=== PATIENT | female | born 1945 | race African-American/Black ===

== ENCOUNTER 2023-03-31 11:59 | Inpatient (IN) | payer OTHER ==
[2023-03-31] MEDS ORDERED: DEXTROSE 50%-WATER 25 GM/50 ML DISP.SYRIN IVPUSH ONE (12:11)
[2023-03-31] MEDS ORDERED: DEXTROSE 50%-WATER 25 GM/50 ML DISP.SYRIN ONE ×2 (12:11→16:58)
[2023-03-31] MEDS ORDERED: DEXTROSE 50%-WATER - 25 GM/50 ML VIAL IVPUSH ONE (12:11)
[2023-03-31 12:48] LABS: BASO % 0.2 % (0-2.0); EOS % 0.1 % (0-4.5); HEMATOCRIT 29.9 % (32.4-45.2); HEMOGLOBIN 9.2 GM/dL (10.7-15.3); LYMPH % 7.4 % (8-40); MCH 27.6 pg (25.7-33.7); MCHC 30.9 g/dl (32.0-36.0); MEAN CELL VOLUME 89.5 fl (80-96); MEAN PLT VOLUME 6.6 fl (7.5-11.1); MONO % 3.6 % (3.8-10.2); NEUT % 88.7 % (42.8-82.8); PLATELET COUNT 380 10^3/uL (134-434); RBC 3.34 M/mm3 (3.60-5.2); RDW 17.2 % (11.6-15.6); WHITE BLOOD COUNT 6.5 K/mm3 (4.0-10.0)
[2023-03-31 12:57] LABS: INR 1.19 (0.83-1.09); PROTHROMBIN TIME (PATIENT) 13.8 SEC (9.7-13.0)
[2023-03-31 12:59] LABS: ACTIVATED PTT 34.2 SECONDS (25.2-36.5)
[2023-03-31 13:10] LABS: POTASSIUM 4.2 mmol/L (3.5-5.1)
[2023-03-31 13:12] LABS: CALCIUM 8.3 mg/dL (8.5-10.1)
[2023-03-31 13:13] LABS: ALBUMIN 2.7 g/dl (3.4-5.0); BLOOD UREA NITROGEN 33.2 mg/dL (7-18)
[2023-03-31 13:16] LABS: CREATININE 1.1 mg/dL (0.55-1.3)
[2023-03-31 13:18] LABS: BILIRUBIN,TOTAL 0.2 mg/dL (0.2-1); TOT PROT 6.2 g/dl (6.4-8.2)
[2023-03-31] MEDS ORDERED: MAG HYDROX/AL HYDROX/SIMETH 30 ML UNIT-DOSE CUP PO PRN (16:50)
[2023-03-31] MEDS ORDERED: ACETAMINOPHEN 325 MG TABLET (FP) PO PRN (17:20)
[2023-03-31] MEDS: DEXTROSE 50%-WATER 25 GM/50 ML DISP.SYRIN IVPUSH PRN (20:48)
[2023-03-31] MEDS ORDERED: SODIUM CHLORIDE 1,000 ML IV STA (20:55)
[2023-03-31] MEDS: MIRTAZAPINE 15 MG TABLET (FP) PO SCH (23:03)
[2023-03-31] MEDS: SENNOSIDES 8.6MG TABLET (FP) PO SCH (23:03)
[2023-03-31] MEDS: traMADol HCL 50 MG TABLET PO SCH (23:04)
[2023-03-31] MEDS: ATORVASTATIN CA 10 MG TABLET (FP) PO SCH (23:04)
[2023-03-31] MEDS: FERROUS SO4 325 MG TABLET (FP) PO SCH (23:06)
[2023-03-31] MEDS: levETIRAcetam 250 MG TABLET PO SCH (23:06)
[2023-04-01] MEDS: DEXTROSE 50%-WATER 25 GM/50 ML DISP.SYRIN IVPUSH PRN (05:47)
[2023-04-01] MEDS: LIPASE/PROTEASE/AMYLASE 6,000 UNIT CAPSULE PO SCH ×3 (06:32→16:53)
[2023-04-01] MEDS: risperiDONE 1 MG TABLET PO SCH (06:33)
[2023-04-01] MEDS: SERTRALINE HCL 50 MG TABLET (FP) PO SCH (09:21)
[2023-04-01] MEDS: ENOXAPARIN NA (PORCINE) 40 MG/0.4 ML DISP.SYRIN SQ SCH (09:21)
[2023-04-01] MEDS: FAMOTIDINE 20 MG TABLET PO SCH (09:21)
[2023-04-01] MEDS: levETIRAcetam 250 MG TABLET PO SCH ×2 (09:21→21:04)
[2023-04-01] MEDS: FERROUS SO4 325 MG TABLET (FP) PO SCH ×2 (09:22→21:05)
[2023-04-01] MEDS: LISINOPRIL 20 MG TABLET PO SCH (09:22)
[2023-04-01] MEDS: FOLIC ACID 1 MG TABLET (FP) PO SCH (09:22)
[2023-04-01] MEDS: amLODIPine BESYLATE 10 MG TABLET (FP) PO SCH (09:23)
[2023-04-01] MEDS: traMADol HCL 50 MG TABLET PO SCH ×3 (09:25→21:05)
[2023-04-01] MEDS: POLYETHYLENE GLYCOL (HEALTHYLAX) 3350 17 GM PACKET PO SCH (10:39)
[2023-04-01 10:52] LABS: BASO % 0.3 % (0-2.0); EOS % 0.6 % (0-4.5); HEMOGLOBIN 9.3 GM/dL (10.7-15.3); LYMPH % 14.3 % (8-40); MCH 28.9 pg (25.7-33.7); MCHC 32.1 g/dl (32.0-36.0); MEAN CELL VOLUME 89.8 fl (80-96); MEAN PLT VOLUME 6.8 fl (7.5-11.1); MONO % 6.5 % (3.8-10.2); NEUT % 78.3 % (42.8-82.8); PLATELET COUNT 384 10^3/uL (134-434); RBC 3.23 M/mm3 (3.60-5.2); RDW 17.1 % (11.6-15.6); WHITE BLOOD COUNT 5.8 K/mm3 (4.0-10.0)
[2023-04-01 11:14] LABS: POTASSIUM 4.2 mmol/L (3.5-5.1)
[2023-04-01 11:32] LABS: CALCIUM 8.1 mg/dL (8.5-10.1)
[2023-04-01 11:33] LABS: ALBUMIN 2.6 g/dl (3.4-5.0); MAGNESIUM 1.9 mg/dL (1.8-2.4)
[2023-04-01 11:35] LABS: CREATININE 1.1 mg/dL (0.55-1.3); PHOSPHOROUS 3.4 mg/dL (2.5-4.9)
[2023-04-01 11:37] LABS: BILIRUBIN,TOTAL 0.4 mg/dL (0.2-1); TOT PROT 6.3 g/dl (6.4-8.2)
[2023-04-01] MEDS: COLLAGENASE CLOSTRIDIUM HIST. 30 GRAMS TUBE TP SCH (12:30)
[2023-04-01 18:58] LABS: EPI CELLS >36 /uL (0-25.1); HYALINE CASTS 165 /uL (0-3.1); URINE APPEARANCE TURBID; URINE BACTERIA >9,000 /uL (0-1359); URINE BILIRUBIN NEGATIVE (NEGATIVE); URINE COLOR YELLOW; URINE GLUCOSE (UA) TRACE (NEGATIVE); URINE KETONE NEGATIVE (NEGATIVE); URINE LEUK ESTERASE 2+ (NEGATIVE); URINE NITRITE NEGATIVE (NEGATIVE); URINE PROTEIN 2+ (NEGATIVE); URINE UROBILINOGEN 0.2 mg/dL (0.2-1.0); URINE WBC 2841 /uL (0-25.8)
[2023-04-01 20:24] LABS: URINE RBC 249.5 /uL (0-23.9); YEAST MANY (NEGATIVE)
[2023-04-01] MEDS: ATORVASTATIN CA 10 MG TABLET (FP) PO SCH (21:04)
[2023-04-01] MEDS: MIRTAZAPINE 15 MG TABLET (FP) PO SCH (21:04)
[2023-04-01] MEDS: SENNOSIDES 8.6MG TABLET (FP) PO SCH (21:05)
[2023-04-01 22:03] VITALS: BMI 18.1
[2023-04-02] MEDS: LIPASE/PROTEASE/AMYLASE 6,000 UNIT CAPSULE PO SCH ×3 (06:07→17:35)
[2023-04-02] MEDS: risperiDONE 1 MG TABLET PO SCH (06:07)
[2023-04-02 10:22] LABS: BASO % 0.4 % (0-2.0); EOS % 1.6 % (0-4.5); HEMATOCRIT 31.3 % (32.4-45.2); HEMOGLOBIN 9.8 GM/dL (10.7-15.3); LYMPH % 26.5 % (8-40); MCH 28.8 pg (25.7-33.7); MCHC 31.4 g/dl (32.0-36.0); MEAN CELL VOLUME 91.9 fl (80-96); MEAN PLT VOLUME 7.8 fl (7.5-11.1); NEUT % 63.5 % (42.8-82.8); PLATELET COUNT 281 10^3/uL (134-434); RBC 3.41 M/mm3 (3.60-5.2); RDW 16.9 % (11.6-15.6); WHITE BLOOD COUNT 5.1 K/mm3 (4.0-10.0)
[2023-04-02 10:28] LABS: POTASSIUM 4.6 mmol/L (3.5-5.1)
[2023-04-02 10:33] LABS: ALBUMIN 2.4 g/dl (3.4-5.0)
[2023-04-02] MEDS: FAMOTIDINE 20 MG TABLET PO SCH (10:37)
[2023-04-02] MEDS: FERROUS SO4 325 MG TABLET (FP) PO SCH ×2 (10:37→21:14)
[2023-04-02] MEDS: levETIRAcetam 250 MG TABLET PO SCH ×2 (10:37→21:14)
[2023-04-02] MEDS: POLYETHYLENE GLYCOL (HEALTHYLAX) 3350 17 GM PACKET PO SCH (10:37)
[2023-04-02] MEDS: FOLIC ACID 1 MG TABLET (FP) PO SCH (10:38)
[2023-04-02] MEDS: MULTIVITAMINS (DAILY MVI) TABLET (FP) PO SCH (10:38)
[2023-04-02] MEDS: SERTRALINE HCL 50 MG TABLET (FP) PO SCH (10:38)
[2023-04-02] MEDS: ENOXAPARIN NA (PORCINE) 40 MG/0.4 ML DISP.SYRIN SQ SCH (10:38)
[2023-04-02 10:41] LABS: BILIRUBIN,TOTAL 0.3 mg/dL (0.2-1)
[2023-04-02 10:42] LABS: TOT PROT 5.8 g/dl (6.4-8.2)
[2023-04-02] MEDS: traMADol HCL 50 MG TABLET PO SCH ×2 (10:49→21:14)
[2023-04-02] MEDS: COLLAGENASE CLOSTRIDIUM HIST. 30 GRAMS TUBE TP SCH (10:51)
[2023-04-02] MEDS: LISINOPRIL 20 MG TABLET PO SCH (10:53)
[2023-04-02] MEDS: amLODIPine BESYLATE 10 MG TABLET (FP) PO SCH (10:53)
[2023-04-02] MEDS: CEFTRIAXONE 1 GM in DEXTROSE 5%-WATER - 50 ML IVPB SCH (13:42)
[2023-04-02] MEDS: ATORVASTATIN CA 10 MG TABLET (FP) PO SCH (21:14)
[2023-04-02] MEDS: SENNOSIDES 8.6MG TABLET (FP) PO SCH (21:14)
[2023-04-02] MEDS: MIRTAZAPINE 15 MG TABLET (FP) PO SCH (21:14)
[2023-04-03] MEDS: risperiDONE 1 MG TABLET PO SCH (06:25)
[2023-04-03] MEDS: LIPASE/PROTEASE/AMYLASE 6,000 UNIT CAPSULE PO SCH ×3 (06:25→17:58)
[2023-04-03 09:28] LABS: BASO % 0.3 % (0-2.0); EOS % 1.1 % (0-4.5); HEMATOCRIT 29.2 % (32.4-45.2); HEMOGLOBIN 9.3 GM/dL (10.7-15.3); LYMPH % 30.6 % (8-40); MCH 28.6 pg (25.7-33.7); MCHC 31.8 g/dl (32.0-36.0); MEAN CELL VOLUME 89.7 fl (80-96); MEAN PLT VOLUME 8.1 fl (7.5-11.1); MONO % 6.3 % (3.8-10.2); NEUT % 61.7 % (42.8-82.8); RBC 3.25 M/mm3 (3.60-5.2)
[2023-04-03 09:31] LABS: PLATELET COUNT 267 10^3/uL (134-434)
[2023-04-03 09:53] LABS: POTASSIUM 4.5 mmol/L (3.5-5.1)
[2023-04-03] MEDS: levETIRAcetam 250 MG TABLET PO SCH ×2 (10:06→22:01)
[2023-04-03] MEDS: POLYETHYLENE GLYCOL (HEALTHYLAX) 3350 17 GM PACKET PO SCH (10:06)
[2023-04-03] MEDS: amLODIPine BESYLATE 10 MG TABLET (FP) PO SCH (10:06)
[2023-04-03] MEDS: FAMOTIDINE 20 MG TABLET PO SCH (10:06)
[2023-04-03] MEDS: CEFTRIAXONE 1 GM in DEXTROSE 5%-WATER - 50 ML IVPB SCH (10:06)
[2023-04-03] MEDS: FERROUS SO4 325 MG TABLET (FP) PO SCH ×2 (10:07→22:00)
[2023-04-03] MEDS: MULTIVITAMINS (DAILY MVI) TABLET (FP) PO SCH (10:07)
[2023-04-03] MEDS: traMADol HCL 50 MG TABLET PO SCH ×2 (10:07→22:00)
[2023-04-03] MEDS: LISINOPRIL 20 MG TABLET PO SCH (10:07)
[2023-04-03] MEDS: SERTRALINE HCL 50 MG TABLET (FP) PO SCH (10:07)
[2023-04-03] MEDS: FOLIC ACID 1 MG TABLET (FP) PO SCH (10:07)
[2023-04-03 10:08] LABS: ALBUMIN 2.6 g/dl (3.4-5.0); BLOOD UREA NITROGEN 18.8 mg/dL (7-18); CALCIUM 8.5 mg/dL (8.5-10.1)
[2023-04-03 10:12] VITALS: RESP 18
[2023-04-03 10:13] LABS: BILIRUBIN,TOTAL 0.3 mg/dL (0.2-1); TOT PROT 6.3 g/dl (6.4-8.2)
[2023-04-03] MEDS ORDERED: FLUCONAZOLE 150 MG TABLET PO ONE (12:30)
[2023-04-03] MEDS: ENOXAPARIN NA (PORCINE) 40 MG/0.4 ML DISP.SYRIN SQ SCH (12:52)
[2023-04-03] MEDS: COLLAGENASE CLOSTRIDIUM HIST. 30 GRAMS TUBE TP SCH ×2 (17:55→17:58)
[2023-04-03] MEDS: MIRTAZAPINE 15 MG TABLET (FP) PO SCH (22:00)
[2023-04-03] MEDS: SENNOSIDES 8.6MG TABLET (FP) PO SCH (22:00)
[2023-04-03] MEDS: ATORVASTATIN CA 10 MG TABLET (FP) PO SCH (22:00)
[2023-04-04] MEDS: risperiDONE 1 MG TABLET PO SCH (06:34)
[2023-04-04] MEDS: LIPASE/PROTEASE/AMYLASE 6,000 UNIT CAPSULE PO SCH ×3 (06:35→16:19)
[2023-04-04] MEDS: MULTIVITAMINS (DAILY MVI) TABLET (FP) PO SCH (10:16)
[2023-04-04] MEDS: FOLIC ACID 1 MG TABLET (FP) PO SCH (10:16)
[2023-04-04] MEDS: amLODIPine BESYLATE 10 MG TABLET (FP) PO SCH (10:16)
[2023-04-04] MEDS: FERROUS SO4 325 MG TABLET (FP) PO SCH (10:16)
[2023-04-04] MEDS: traMADol HCL 50 MG TABLET PO SCH (10:16)
[2023-04-04] MEDS: SERTRALINE HCL 50 MG TABLET (FP) PO SCH (10:16)
[2023-04-04] MEDS: FAMOTIDINE 20 MG TABLET PO SCH (10:17)
[2023-04-04] MEDS: ENOXAPARIN NA (PORCINE) 40 MG/0.4 ML DISP.SYRIN SQ SCH (10:17)
[2023-04-04] MEDS: levETIRAcetam 250 MG TABLET PO SCH (10:17)
[2023-04-04] MEDS: LISINOPRIL 20 MG TABLET PO SCH (10:17)
[2023-04-04] MEDS: COLLAGENASE CLOSTRIDIUM HIST. 30 GRAMS TUBE TP SCH (10:17)
[2023-04-04] MEDS: POLYETHYLENE GLYCOL (HEALTHYLAX) 3350 17 GM PACKET PO SCH (11:23)
[2023-04-04] MEDS: CEFTRIAXONE 1 GM in DEXTROSE 5%-WATER - 50 ML IVPB SCH (11:23)
[2023-04-04 11:26] LABS: RETICULOCYTES 0.96 % (0.5-1.5)
[2023-04-04 13:21] VITALS: BP 116/58; PULSE 64; TEMP 97.8
== END 2023-04-04 18:37 | disposition home or self-care (01) | DRG 637 ==
LOC: JER 11:59 → JERBED 15:07 → J5S 19:15
PROVIDERS: ADMIT Internal Medicine; ATTEND Internal Medicine
DX: E11.649 Type 2 diabetes mellitus with hypoglycemia without coma (principal); E43 Unspecified severe protein-calorie malnutrition; G92.8 Other toxic encephalopathy; E87.20 Acidosis, unspecified; N39.0 Urinary tract infection, site not specified; Z68.1 Body mass index [BMI] 19.9 or less, adult; I10 Essential (primary) hypertension; G40.909 Epilepsy, unspecified, not intractable, without status epilepticus; E78.5 Hyperlipidemia, unspecified; K21.9 Gastro-esophageal reflux disease without esophagitis; F41.9 Anxiety disorder, unspecified; L89.152 Pressure ulcer of sacral region, stage 2; F03.90 Unspecified dementia, unspecified severity, without behavioral disturbance, psychotic disturbance, mood disturbance, and anxiety; F25.9 Schizoaffective disorder, unspecified; I69.391 Dysphagia following cerebral infarction; R13.19 Other dysphagia; R47.02 Dysphasia; F41.8 Other specified anxiety disorders; F39 Unspecified mood [affective] disorder
CPT/HCPCS: 0241U-QW; 36415; 71045-TC-FY; 80053; 81003; 82728; 82962; 83036; 83540; 83550; 83605; 83735; 84100; 84443; 84484; 85025; 85045; 85610; 85730; 86850; 86900; 86901; 87086; 87635; 93005; 93010; 97116-GP; 97161-GP; 99285-25